=== PATIENT | male | born 1985 | race Caucasian/White ===

== ENCOUNTER 2020-07-15 20:20 | Emergency (ER) | payer MEDICAID, SELFPAY ==
--- NOTE | ~2020-07-15 | US_ITS ---
EXAMINATION: US VENOUS ULTRASOUND WITH DOPPLER LOWER EXTREMITY, LEFT CLINICAL INFORMATION: Left lower extremity pain. COMPARISON: None TECHNIQUE: Ultrasound of the deep veins is performed from the hip to the calf with compression sonography and color and pulse Doppler assessment. Spectral analysis with color-flow imaging is performed. FINDINGS: There is normal venous compression and respiratory variation and augmented flow. The visualized common femoral vein, superficial femoral vein, profunda femoral vein, popliteal vein, and the trifurcation region shows no evidence of deep venous thrombosis. There is no significant popliteal fossa cyst. Note is made of somewhat slow flow within the left popliteal vein. If the patient's symptoms persist, followup ultrasound in 5 days 7 days might be of value to exclude proximal propagation from a non-visualized calf vein. US/US venous duplex LE IMPRESSION: No DVT demonstrated in the left lower extremity.
[2020-07-15 20:27] VITALS: BP 148/80; PULSE 85; RESP 16; TEMP 36.1; O2SAT 100; BMI 23.4
--- NOTE | 2020-07-15 23:59 | ED.GENADULT ---
HPI - General Adult General Chief complaint: General Medical Stated complaint: leg pain Time Seen by Provider: 07/15/20 22:29 Source: patient and RN notes reviewed Mode of arrival: ambulatory Limitations: no limitations History of Present Illness HPI narrative: 35-year-old male here today for complaining of left upper extremity pain. Patient reports that the pain started few weeks ago couple days before he got sick with COVID. He was given prednisone 30, 20, 10 for 3 days. Patient continues to have pain. Denies pain in his groin, denies trauma. Reports that anterior portion of his upper leg about 15 cm below his groin area is tender. Denies redness, warmth. Related Data Allergies Allergy/AdvReac Type Severity Reaction Status Date / Time No Known Allergies Allergy Verified 07/15/20 20:26 [facility] Past Medical History Medical History (Updated 07/16/20 @ 02:04 by Jigna Rausch [facility]) COVID-19 Social History Social History Alcohol intake: never Smoked in Last 30 Days: No Advance Directives: No Advance Directives Information Provided: No Physical Exam Vital Signs: Vital Signs: Last Vital Signs Temp 97.0 F 07/15/20 20:27 Pulse 85 07/15/20 20:27 Resp 16 07/15/20 20:27 BP 148/80 H 07/15/20 20:27 Pulse Ox 100 07/15/20 20:27 Body Mass Index 23.4 Course Course Course Narrative: Left upper extremity pain. Area around 5 cm 15 cm below groin area tender to touch. No increased redness, hematoma, warmth. Will order ultrasound to rule out DVT. Patient did had COVID about month ago. Symptoms of the left upper extremity pain started 2 days before he was diagnosed with COVID. Pulses: popliteal and pedal positive. Reevaluation(s) Reevaluation #1: Left lower extremity ultrasound negative for DVT. Patient will be going home to follow-up with PCP. Patient educated to put warm compress. Monitor the site Discharge Plan Discharge Clinical Impression: Muscle strain Patient Disposition: Home, Self-Care Instructions: Muscle Spasm (ED) Additional Instructions: You were seen here today in the emergency department for left upper leg pain. Your ultrasound is negative for DVT. You can apply warm compress to the affected area. Follow-up with your PCP in 3-5 days. You may return to emergency department if you will experience any concerning symptoms or if your current symptoms will get worse.
[2020-07-16 02:00] VITALS: PULSE 80; RESP 18; O2SAT 100
[2020-07-16 02:34] LABS: Influenza A PCR NEGATIVE (Negative); Influenza B PCR NEGATIVE (Negative); Resp Syncy Virus RNA Qual PCR NEGATIVE (Negative); SARS COV2 PCR INHOUSE NEGATIVE (Negative)
== END 2020-07-16 02:15 | disposition home or self-care (01) ==
PROVIDERS: Emergency Provider Emergency Medicine
DX: M79.652 Pain in left thigh (principal); S76.912A Strain of unspecified muscles, fascia and tendons at thigh level, left thigh, initial encounter; X58.XXXA Exposure to other specified factors, initial encounter; Z20.822 Contact with and (suspected) exposure to COVID-19; Y93.9 Activity, unspecified; Y92.9 Unspecified place or not applicable; Y99.9 Unspecified external cause status
CPT/HCPCS: 0241U; 36415; 93971; 99284